=== PATIENT | female | born 1965 | race Caucasian/White ===

== ENCOUNTER → 2016-06-13 | Day surgery (SDC) | payer BC ==
[~2016-06-13] MED LIST: BENTYL20 MG PO; DISCONTINUED MED; FIORINAL W/CODE1 CA1 PO; LOMOTIL WHITE2.5 MG PO; LORTAB 5/500 TA1 TA1 PO; LORTAB 7.5-5001 TAB PO; MIGRAINE MEDICATION PO; NO MEDICATIONS; PHENERGAN PO; PROCTOFOAM-HC10 G1 MC; PROMETHAZINE HC25 MG PO; TOBRADEX EYE DR10 ML OP; [UNRECOGNIZED DRUG - MIXTURE]; [UNRECOGNIZED DRUG - OTHER]; [UNRECOGNIZED DRUG - OTHER] PO
--- NOTE | ~2016-06-13 | OR ---
Unit #: [id number] #: [id number] Patient: RAKAN BALDWIN [id number] [address] [place], [place] [address] [id number] MR#: [id number] NAME: RAKAN BALDWIN ROOM: Date of Procedure: 06/13/2016 Admission Date: 06/13/2016 Surgeon: Mark Warren M.D. : 1965 Attending Physician: Mark Warren M.D. Primary Care Physician: Guillermo Miramontes M.D. OPERATIVE REPORT PRIMARY CARE PHYSICIAN Guillermo Miramontes M.D. PREOPERATIVE DIAGNOSES Colorectal cancer screening in an average-risk patient. PROCEDURE PERFORMED Colonoscopy up to cecum and terminal ileum with excellent preparation and good visualization. POSTOPERATIVE DIAGNOSES Completely normal examination up to cecum and terminal ileum. The quality of the prep was excellent. No polyps, diverticula, or hemorrhoids were seen. RECOMMENDATIONS Repeat colonoscopy in 10 years. SEDATION USED MAC. DESCRIPTION OF PROCEDURE Following detailed explanations of potential risks and complications of a colonoscopy, namely perforation, bleeding, and complications related to sedation, the patient was brought to GI lab and laid in the left lateral decubitus position. Digital rectal examination was performed, which was normal. Lubricated tip of the Olympus video colonoscope was inserted through the anus and advanced under direct vision. The scope was advanced and passed up to sigmoid into descending colon. No diverticula were seen in this area. The scope tip was then navigated all the way up to cecum with visualization of the ileocecal valve and the appendiceal orifice. Preparation was excellent with good visualization and photodocumentation was obtained. Last several inches of the terminal ileum also visualized after intubation of the ileocecal valve and appeared normal. Successive segments of the colonic mucosa were examined upon withdrawal and appeared unremarkable. There being no polyps, mass lesions, AVMs, or diverticula. The patient tolerated the procedure without any postprocedure complications. Dictated by... Mark Warren M.D. Unit #: [id number] #: [id number] Patient: RAKAN BALDWIN TORO/tyra TD: 06/14/2016 00:21 JOB #: [id number] OPERATIVE REPORT X Mark Warren MD PROCEDURE OPERATIVE NOTE
== END | disposition home or self-care (01) ==
LOC: COPS 09:57
DX: Z12.11 Encounter for screening for malignant neoplasm of colon (principal); D64.9 Anemia, unspecified; Z87.440 Personal history of urinary (tract) infections; Z88.0 Allergy status to penicillin; Z79.899 Other long term (current) drug therapy; Z90.710 Acquired absence of both cervix and uterus; Z96.1 Presence of intraocular lens; Z98.890 Other specified postprocedural states
CPT/HCPCS: J2250